=== PATIENT | female | born 1990 | race Caucasian/White ===

== ENCOUNTER 2017-09-30 00:40 | Inpatient (IN) | END 2017-10-02 15:40 | disposition home or self-care (01) | DRG 775 | DX: O80 Encounter for full-term uncomplicated delivery (principal); Z37.0 Single live birth; Z3A.39 39 weeks gestation of pregnancy ==

== ENCOUNTER 2017-10-07 11:01 | Emergency (ER) | payer MEDICAID ==
[~2017-10-07] VITALS: Wt 87.2 kg
[2017-10-07 12:40] LABS: BASOPHIL # 0.1 10^3/ul (0.0-0.1); BASOPHILS % 0.6 % (0.0-2.0); EOSINOPHILS # 0.4 10^3/ul (0.0-0.5); EOSINOPHILS % 4.6 % (0.0-7.0); HEMATOCRIT 37.5 % (37.0-47.0); HEMOGLOBIN 12.1 g/dl (12.0-16.0); LYMPHOCYTES # 2.3 10^3/ul (0.8-2.9); LYMPHOCYTES % 26.4 % (15.0-51.0); MEAN CORPUSCULAR HEMOGLOBIN 27.9 pg (29.0-33.0); MEAN CORPUSCULAR HGB CONC 32.3 g/dl (32.0-37.0); MEAN CORPUSCULAR VOLUME 86.4 fl (82.0-101.0); MEAN PLATELET VOLUME 11.2 fl (7.4-10.4); MONOCYTE # 0.5 10^3/ul (0.3-0.9); MONOCYTES % 6.2 % (0.0-11.0); NEUTROPHIL # 5.3 10^3/ul (1.6-7.5); NEUTROPHILS % 61.9 % (39.0-77.0); PLATELET COUNT 270 10^3/UL (140-415); RED BLOOD COUNT 4.34 10^6/ul (4.20-5.40); RED CELL DISTRIBUTION WIDTH 14.6 % (11.5-14.5); WHITE BLOOD COUNT 8.6 10^3/ul (4.8-10.8)
[2017-10-07 12:45] LABS: ADD UMIC YES; UR ASCORBIC ACID NEGATIVE (NEGATIVE); UR BACTERIA FEW /HPF (NONE SEEN); UR BILIRUBIN (Dip) NEGATIVE (NEGATIVE); UR BLOOD (Dip) 3+ mg/dL (NEGATIVE); UR CLARITY SLIGHTLY CLOUDY (CLEAR); UR COLOR YELLOW (YELLOW); UR GLUCOSE (Dip) NEGATIVE (NEGATIVE); UR KETONES (Dip) NEGATIVE (NEGATIVE); UR LEUKOCYTE ESTERASE (Dip) 2+ Leu/ul (NEGATIVE); UR MUCUS FEW /HPF (NONE SEEN); UR NITRITE (Dip) NEGATIVE (NEGATIVE); UR NONSQUAMOUS EPITHELIAL CELL 1 /HPF (NONE SEEN); UR RBC > 182 /HPF (0-5); UR SQUAMOUS EPITHELIAL CELL FEW /HPF (FEW); UR TOTAL PROTEIN (Dip) NEGATIVE (NEGATIVE); UR UROBILINOGEN (Dip) NEGATIVE (NEGATIVE)
[2017-10-07 12:59] LABS: ALBUMIN 3.7 g/dl (3.3-4.9); BILIRUBIN,INDIRECT 0.4 mg/dl (0-1.1); BILIRUBIN,TOTAL 0.4 mg/dl (0.2-1.3); CALCIUM 9.9 mg/dl (8.4-10.2); CREATININE 0.77 mg/dl (0.44-1.00); POTASSIUM 4.7 mmol/L (3.5-5.1); TOTAL PROTEIN 7.4 g/dl (6.1-8.1)
--- NOTE | 2017-10-07 14:06 | RADRPT ---
PROCEDURE: US Pelvis. CLINICAL INDICATION: bleeding TECHNIQUE: Multiple sonographic images of the pelvis were obtained utilizing a transabdominal miguel hnique. The images were reviewed on a PACS workstation. COMPARISON: 09/30/2017 FINDINGS: The uterus is normal in size with a normal appearance of the myometrium. The uterus measures 14.5 x 7.9 x 9.3 cm. The endometrial stripe is homogeneous in appearance and has the thickness of 37 mm. Small complex collection at the lower uterine segment compatible with hematoma. The right ovary measures 3.9 x 1.8 x 2.8 cm. Normal color and Doppler flow in the right ovary. The left ovary is not visualized. There is free fluid is present within the pelvis. RPTAT: AA IMPRESSION: Large heterogeneous uterus with thickened endometrium status post . No significant increased v ascularity to suggest retained products of conception. Small complex collection at the lower uterine segment compatible with hematoma. Physician Sasha Date Time Electronically viewed and signed by Physician Sasha on 10/07/2017 14:06 [place]/
[2017-10-07] MEDS ORDERED: CEPH-443 PO (15:05)
--- NOTE | 2017-10-07 15:14 | ERD ---
ER Documentation Chief Complaint Chief Complaint increased vag bleed and passing clots since yesterday, gave 09/30/17 HPI 27-year-old female patient who is a with no significant past medical history presents to the ED complaining of vaginal bleeding and passing blood clots since yesterday. Patient just gave on October 05, 2017, 2 days ago. Reports that she does not know the name of her [employer]. Denies any vaginal discharge, dysuria, abdominal pain, nausea, vomiting, diarrhea, chest pain, shortness of breath. ROS All systems reviewed and are negative except as per history of present illness. Medications Home Meds Active Scripts Cephalexin* (Keflex*) 500 Mg Capsule, 500 MG PO QID for 7 Days, CAP Prov:CAROLA MORALES PA-C 10/07/17 Allergies Allergies: Coded Allergies: No Known Drug Allergies (Verified Allergy, Mild, 10/07/17) PMhx/Soc Medical and Surgical Hx: pt denies Medical Hx, pt denies Surgical Hx Hx Alcohol Use: No Hx Substance Use: No Hx Tobacco Use: No Smoking Status: Never smoker Physical Exam Vitals Vital Signs Date Time Temp Pulse Resp B/P Pulse Ox O2 Delivery O2 Flow Rate FiO2 10/07/17 11:04 99.4 82 16 114/64 98 Physical Exam Const: [id number], well-nourished. In no acute distress. Head: Atraumatic, normocephalic Eyes: Normal Conjunctiva without injection. No purulent discharge. ENT: Normal external ear, nose. Moist oropharynx without tonsillar exudates. Non -erythematous pharynx. Uvula midline. No drooling. No trismus. Neck: No cervical midline tenderness. Full range of motion. No meningismus. No cervical lymphadenopathy. No JVD. Resp: Clear to auscultation bilaterally. No wheezing, rhonchi, rales, or crackles. No accessory muscle use. No retractions. Cardio: Regular rate and rhythm. No murmurs, rubs or gallops. Abd: Soft, nontender, non distended. Normal bowel sounds. No palpable masses. No rebound tenderness. No guarding. Negative McBurney's point. Negative psoas sign. Negative obturator sign. : See exam in MDM. Skin: No petechiae or rashes Back: No midline tenderness. No CVA tenderness. Ext: No cyanosis, or edema. Neur: Awake and alert. Normal gait. Normal coordination. Psych: Normal Mood and Affect Results 24 hrs Laboratory Tests Test 10/07/17 12:23 White Blood Count 8.610^3/ul Red Blood Count 4.3410^6/ul Hemoglobin 12.1g/dl Hematocrit 37.5% Mean Corpuscular Volume 86.4fl Mean Corpuscular Hemoglobin 27.9pg Mean Corpuscular Hemoglobin Concent 32.3g/dl Red Cell Distribution Width 14.6% Platelet Count 85981^3/UL Mean Platelet Volume 11.2fl Neutrophils % 61.9% Lymphocytes % 26.4% Monocytes % 6.2% Eosinophils % 4.6% Basophils % 0.6% Nucleated Red Blood Cells % 0.0/100WBC Neutrophils # 5.310^3/ul Lymphocytes # 2.310^3/ul Monocytes # 0.510^3/ul Eosinophils # 0.410^3/ul Basophils # 0.110^3/ul Nucleated Red Blood Cells # 0.010^3/ul Urine Color YELLOW Urine Clarity SLIGHTLY CLOUDY Urine pH 5.0 Urine Specific [place] 1.020 Urine Ketones NEGATIVEmg/dL Urine Nitrite NEGATIVEmg/dL Urine Bilirubin NEGATIVEmg/dL Urine Urobilinogen NEGATIVEmg/dL Urine Leukocyte Esterase 2+Diana/ul Urine Microscopic RBC > 182/HPF Urine Microscopic WBC 79/HPF Urine Squamous Epithelial Cells FEW/HPF Urine Bacteria FEW/HPF Urine Mucus FEW/HPF Urine Hemoglobin 3+mg/dL Urine Glucose NEGATIVEmg/dL Urine Total Protein NEGATIVEmg/dl Sodium Level 141mmol/L Potassium Level 4.7mmol/L Chloride Level 106mmol/L Carbon Dioxide Level 28mmol/L Anion Gap 12 Blood Urea Nitrogen 15mg/dl Creatinine 0.77mg/dl Glucose Level 92mg/dl Calcium Level 9.9mg/dl Total Bilirubin 0.4mg/dl Direct Bilirubin 0.00mg/dl Indirect Bilirubin 0.4mg/dl Aspartate Amino Transf (AST/SGOT) 19IU/L Alanine Aminotransferase (ALT/SGPT) 60IU/L Alkaline Phosphatase 97IU/L Total Protein 7.4g/dl Albumin 3.7g/dl Globulin 3.70g/dl Albumin/Globulin Ratio 1.00 Procedures/MDM 27-year-old female patient with no significant past medical history presents to the ED vaginal bleeding post vaginal delivery, 2 days ago. Patient is afebrile and nontoxic-appearing. An ultrasound, CBC, CMP, pelvic exam, UA, urine pregnany was ordered to evaluate patient. CBC: No evidence of severe infection or anemia CMP: No e/o alkalosis, acidosis, renal and liver disease Urine: No elevation in nitrites, leukocyte esterase, hematuria. No evidence of UTI Negative urine Pelvic Exam: [employer] Specialist present Abdomen: [Nontender] External Genitalia: [Normal Skin] Speculum: [Normal vaginal mucosa, normal cervical discharge. slight vaginal bleeding noted secondary to recent vaginal delivery of baby 2 days ago] Bimanual: [No adnexal masses or tenderness, No CMT] PROCEDURE: US Pelvis. CLINICAL INDICATION: bleeding TECHNIQUE: Multiple sonographic images of the pelvis were obtained utilizing a transabdominal technique. The images were reviewed on a PACS workstation. COMPARISON: 09/30/2017 FINDINGS: The uterus is normal in size with a normal appearance of the myometrium. The uterus measures 14.5 x 7.9 x 9.3 cm. The endometrial stripe is homogeneous in appearance and has the thickness of 37 mm. Small complex collection at the lower uterine segment compatible with hematoma. The right ovary measures 3.9 x 1.8 x 2.8 cm. Normal color and Doppler flow in the right ovary. The left ovary is not visualized. There is free fluid is present within the pelvis. RPTAT: AA IMPRESSION: Large heterogeneous uterus with thickened endometrium status post . No significant increased vascularity to suggest retained products of conception. Small complex collection at the lower uterine segment compatible with hematoma. Patient's vaginal bleeding is likely secondary to vaginal delivery. Patient also has a urinary tract infection. Patient's bleeding symptoms have stabilized while in the department. Low suspicion for post preeclampsia/ eclampsia, pyelonephritis, symptomatic anemia, ectopic , sepsis, PID, appendicitis, ovarian torsion, tubo-ovarian abscess, surgical abdomen, or other emergent conditions. Discharge medications: Keflex Patient to follow up with [employer] in 2 days for further evaluation and treatment. Educated patient that she may continue to bleed however to follow up with [employer]. Patient is to return sooner to the ED for any worsening symptoms. Patient's questions were answered. Patient understood and agreed with discharge plan. Departure Diagnosis: Primary Impression: Vaginal bleeding Condition: Stable Patient Instructions: After a Vaginal , For New Mothers: Staying Fit After Delivery Referrals: [facility] YOU HAVE RECEIVED A MEDICAL SCREENING EXAM AND THE RESULTS INDICATE THAT YOU DO NOT HAVE A CONDITION THAT REQUIRES URGENT TREATMENT IN THE EMERGENCY DEPARTMENT. FURTHER EVALUATION AND TREATMENT OF YOUR CONDITION CAN WAIT UNTIL YOU ARE SEEN IN YOUR DOCTORS OFFICE WITHIN THE NEXT 1-2 DAYS. IT IS YOUR RESPONSIBILITY TO MAKE AN APPOINTMENT FOR FOLOW-UP CARE. IF YOU HAVE A PRIMARY DOCTOR --you should call your primary doctor and schedule an appointment IF YOU DO NOT HAVE A PRIMARY DOCTOR YOU CAN CALL OUR PHYSICIAN REFERRAL HOTLINE AT IF YOU CAN NOT AFFORD TO SEE A PHYSICIAN YOU CAN CHOSE FROM THE FOLLOWING [facility] [address] [facility] [address] [facility] [facility] [address] [facility] [address] [facility] [address] [facility]. [facility] [address] [facility]. [facility] YOU HAVE RECEIVED A MEDICAL SCREENING EXAM AND THE RESULTS INDICATE THAT YOU DO NOT HAVE A CONDITION THAT REQUIRES URGENT TREATMENT IN THE EMERGENCY DEPARTMENT. FURTHER EVALUATION AND TREATMENT OF YOUR CONDITION CAN WAIT UNTIL YOU ARE SEEN IN YOUR DOCTORS OFFICE WITHIN THE NEXT 1-2 DAYS. IT IS YOUR RESPONSIBILITY TO MAKE AN APPOINTMENT FOR FOLOW-UP CARE. IF YOU HAVE A PRIMARY DOCTOR --you should call your primary doctor and schedule and appointment IF YOU DO NOT HAVE A PRIMARY DOCTOR YOU CAN CALL OUR PHYSICIAN REFERRAL HOTLINE AT . IF YOU CAN NOT AFFORD TO SEE A PHYSICIAN YOU CAN CHOSE FROM THE FOLLOWING [facility]: [facility] [address] [place] [address] [facility] [address] [place] [address] [facility] [address] [place] [address] [facility] URGENT CARE/SPECIALTIES Additional Instructions: Seguimiento con sharif obstetra/gineclogo en 2 parker para mayor evaluacin y tratamiento Dgale a la secretaria que nosotros le instruimos hacer esta lisa.Avise o llame si sharif condicin se empeora antes de la lisa. Regresa aqui si peor o no mejor. CAROLA MORALES PA-C Oct 07, 2017 15:14 Dgale a la secretaria que nosotros le instruimos hacer esta lisa.Avise o llame si sharif condicin se empeora antes de la lisa. Regresa aqui si peor o no mejor. CAROLA MORALES PA-C Oct 07, 2017 15:14
== END 2017-10-07 15:40 | disposition home or self-care (01) ==
LOC: FTE 11:01
DX: N93.9 Abnormal uterine and vaginal bleeding, unspecified (principal); R10.2 Pelvic and perineal pain
CPT/HCPCS: 36415; 76856; 80053; 81001; 85025; Z7502